=== PATIENT | male | born 1965 | race Caucasian/White ===

== ENCOUNTER 2021-03-24 18:52 | Emergency (ER) | payer MEDICAID ==
[~2021-03-24] VITALS: Ht 170.2 cm; Wt 83.0 kg
[2021-03-24] MEDS ORDERED: TETANUS, DIPHTHERIA, PERTUSSIS VAC/PF 0.5ML (>10YR OLD) IM ONE (21:30)
[2021-03-24] MEDS ORDERED: LIDOCAINE HCL/EPINEPHRINE 1%-EPI 1:100,000 20 ML VIAL INFIL ONE (21:30)
[2021-03-24] MEDS ORDERED: LIDOCAINE HCL/EPINEPHRINE 1%-EPI 1:100,000 10 ML VIAL IJ NR (22:28)
[2021-03-24] MEDS ORDERED: CEPH500T MT (23:07)
[2021-03-25 00:10] VITALS: BP 145/86
== END 2021-03-25 00:11 | disposition home or self-care (01) ==
LOC: ER 18:52 → EDSEX 18:52 → ER 03-25 00:11
DX: M79.644 Pain in right finger(s) (principal)
CPT/HCPCS: 73140; 90471; 90715; 99283; A4217; Z7610; J3490